=== PATIENT | male | born 1990 | race Caucasian/White ===

== ENCOUNTER 2024-03-29 09:33 | Emergency (ER) | payer OTHER, SELFPAY ==
[2024-03-29 09:34] VITALS: BP 126/78; PULSE 62; RESP 16; TEMP 36.7; O2SAT 100; BMI 24.3
--- NOTE | 2024-03-29 10:10 | EKG12_ITS ---
Test Reason : Blood Pressure : */* mmHG Vent. Rate : 56 BPM Atrial Rate : 56 BPM P-R Int : 136 ms QRS Dur : 88 ms QT Int : 400 ms P-R-T Axes : 73 74 65 degrees QTcB Int : 386 ms Sinus bradycardia Otherwise normal ECG Confirmed by CAN IBANEZ, LAWANDA ([id number]), telegraph editor RAND RUSHING ([id number]) on 03/31/2024 7:24:29 AM Referred By: KISHOR Confirmed By: LAWANDA NORTH MD
--- NOTE | 2024-03-29 10:10 | RAD_ITS ---
EXAM: XR Chest, 1 View CLINICAL INDICATION: TECHNIQUE: Frontal view of the chest. COMPARISON: No relevant prior studies available. FINDINGS: LUNGS AND PLEURAL SPACES: Unremarkable. No consolidation. No pneumothorax. HEART: Unremarkable. No cardiomegaly. MEDIASTINUM: Unremarkable. Normal mediastinal contour. BONES/JOINTS: Unremarkable. No acute fracture. RAD/Chest 1 View (Portable) IMPRESSION: No acute cardiopulmonary process. Reading [facility]
--- NOTE | 2024-03-29 10:25 | EX.ED.DYSGE1 ---
HPI History of Present Illness Chief Complaint: Fall Informant: patient Narrative Narrative: 33-year-old male presenting to the emergency room with syncope. Patient states this morning he was on his way into work when he fell down the stairs due to the ice. He did not feel injured at the time and went to work and was doing his job. He bumped his left knee and states it hit my funny bone. He states he sat down and the next thing he remembers she was waking up on the ground seeing White. He does not believe that he does not believe that he was on the ground for long. A coworker was with him. He was not sweaty. He noted ringing in the right ear. He got up and began feeling nauseous throbbing headache hot and sweaty. Eventually he sat down in the office and began feeling better. He went to urgent care and was sent here. He has not had prior syncope before. Other than his headache which she describes as throbbing and frontal and some mild nausea he is feeling better. [facility] Medical History (Updated 03/29/24 @ 11:[address] Rocky Johns DO) Depression Allergy/AdvReac Type Severity Reaction Status Date / Time No Known Allergies Allergy Verified 03/29/24 09:34 Social History Smoking Status: Unknown if ever smoked ROS ROS ED ROS Narrative Hot and sweaty feeling Constitutional Constitutional ED: Denies chills or weight loss Eyes Eyes: Denies change in vision or diplopia ENT ENT ED: Reports other Details: Right ear tinnitus resolved ; Denies ear pain, rhinorrhea or sore throat Cardiovascular Cardiovascular: Denies chest pain, orthopnea, palpitations or racing heartbeat Respiratory/Chest Respiratory/Chest: Denies cough, dyspnea or orthopnea Gastrointestinal Gastrointestinal: Reports nausea; Denies abdominal pain, diarrhea or vomiting Genitourinary Genitourinary ED: Denies dysuria, hematuria or urinary frequency Musculoskeletal Musculoskeletal: Denies arthralgias or myalgias Integumentary Denies abscess or rash Neurologic Neurologic: Reports headache(s); Denies weakness Psychiatric Psychiatric: Denies anxiety, depression, suicidal ideation or suicidal thoughts Endocrine Endocrinology: Denies polydipsia, polyphagia or polyuria Allergic/Immunologic Allergic/Immunologic ED: Denies mouth swelling, tongue swelling or urticaria EXAM Physical Exam Const Vital Signs: 03/29/24 09:34 03/29/24 09:47 Temperature 98.0 F Temperature Source Temporal Pulse Rate 62 Respiratory Rate 16 Blood Pressure 126/78 H Blood Pressure Mean 94 Pulse Ox 100 Oxygen Delivery Method Room Air Room Air Positive well nourished and well developed General Appearance ED: well developed HEENT Reports normocephalic, head/scalp atraumatic and moist mucous membranes Eyes PERRL and EOMs intact bilaterally Neck no lymphadenopathy, supple and no JVD Resp normal respiratory effort and clear to auscultation bilaterally Cardio regular rate, regular rhythm and no murmurs GI normal to inspection, nondistended, normoactive bowel sounds and non-tender Palpation: soft Back/Spine no CVA tenderness and normal ROM Extremity normal to inspection General Extremety ED: Negative for edema General Extremity: Negative for edema Neuro oriented x3 and CN's II-XII intact bilaterally Sensorium / Orientation: alert Motor Exam: strength 5/5 throughout Psych mental status grossly normal Mood & Affect: Negative for depressed or tearful Skin no rashes or lesions noted and no wounds MDM MDM MDM Narrative Medical decision making narrative: Differential diagnosis includes but not limited to vasovagal syncope cardiogenic syncope anemia dehydration electrolyte abnormality. Patient is EKG is a sinus bradycardia. He is had no events on the monitor. White count 6.4 hemoglobin 13.8 platelet count of 213. Sodium potassium within normal limits. Glucose of 102. My independent interpretation of the chest x-ray is no acute process. Patient received Tylenol for the headache. A CT of the head was obtained which demonstrates no intracranial hemorrhage hematoma or mass. Patient was observed here in department. He notes that when he leaned forward for his chest x-ray he felt lightheaded but did not lose consciousness. There were no events on the monitor during that time. I do not have a clear explanation for his syncope. Could be vasovagal from the pain of hitting his knee. However his knee is not hurting him at this time. We talked about various causes of syncope. We talked about returning should he pass out again. Patient notes understanding has plans to follow-up with his doctor. History & Record Review Discussion w/independent historian: Patient Lab Data Attestation: I reviewed the patient's lab results. Labs: Laboratory Results - last 24 hr 03/29/24 10:35 WBC 6.4 RBC 4.74 Hgb 13.8 Hct 41.4 MCV 87.3 MCH 29.1 MCHC 33.3 RDW Std Deviation 41.0 RDW Coeff of Logan 12.8 Plt Count 213 MPV 9.8 Immature Gran % (Auto) 0.200 Neut % (Auto) 78.3 H Lymph % (Auto) 13.0 L [place] % (Auto) 7.7 Eos % (Auto) 0.5 Baso % (Auto) 0.3 Absolute Neuts (auto) 5.0 Absolute Lymphs (auto) 0.83 Nucleated RBC % 0 Sodium 140 Potassium 4.1 Chloride 106 Carbon Dioxide 29.0 Anion Gap 5 BUN 13 Creatinine 1.06 Estim Creat Clear Calc 103.30 Est GFR (MDRD) Af Amer 104 Est GFR (MDRD) Non-Af 86 BUN/Creatinine Ratio 12.3 Glucose 102 Calcium 8.9 Total Bilirubin 0.60 Direct Bilirubin 0.17 AST 11 L ALT 23 Alkaline Phosphatase 98 Total Protein 7.4 Albumin 4.1 Globulin 3.3 Radiography Diagnostic Testing: Clinical Impression(s) from Imaging Studies Chest X-Ray 03/29/24 10:10 IMPRESSION: No acute cardiopulmonary process. Reading Location: [facility] Brain CT 03/29/24 11:00 IMPRESSION: No acute intracranial hemorrhage, midline shift or mass effect. If symptoms persist, further evaluation with MRI is recommended. Reading Location: [facility] EKG Initial EKG: Attestation: I personally reviewed and interpreted this EKG as follows: Comments: Sinus bradycardia ventricular rate of 56 bpm Discharge Plan Triage Chief Complaint: Fall ED Provider: Rocky Johns Dx/Rx/DC Orders Clinical Impression: Syncope and collapse, Headache Instructions: What Is Syncope Primary Care Provider: Keiry Kerr NP Referrals: Keiry Kerr ENGINEERING SCIENTIST, ENGINEERING SCIENTIST-C [Primary Care Provider] - 3-5 Days if not improving [facility] Doctor,Out of [Non-Staff] - Print Language: Georgian Disposition Disposition: Home, Self Care
[2024-03-29 10:49] LABS: Absolute Lymphocyte Count 0.83 X10^3/uL (0.83-4.51); Basophil# 0.02 X10^3/uL; Basophil% 0.3 % (0-1); Eosinophil# 0.03 X10^3/uL; Eosinophils% 0.5 % (0-5); Hematocrit 41.4 % (40-54); Hemoglobin 13.8 g/dL (13.0-16.5); Lymphocyte # 0.83 X10^3/ul (0.83-4.51); Mean Corp Hgb Conc 33.3 g/dL (32-36); Mean Corpuscular Hgb 29.1 pg (27.0-32.0); Mean Corpuscular Volume 87.3 fL (80-94); Mean Platelet Vol. 9.8 fl (6.2-12.0); Monocyte# 0.49 X10^3/uL; Monocyte% 7.7 % (0-10); NRBC Flagged by Analyzer 0 % (0-5); Neutrophil # 5.02 X10^3/uL (2.7-7.7); Neutrophil % 78.3 % (47-70); Platelet Count 213 K/mm3 (150-450); RBC Distribution Width CV 12.8 % (11.6-14.6); Red Blood Count 4.74 M/mm3 (4.6-6.2); White Blood Count 6.4 K/mm3 (4.4-11.0)
[2024-03-29] MEDS: Acetaminophen 500 MG Tablet 1000 MG PO (10:49)
[2024-03-29] MEDS: Ondansetron 4 MG/2 ML Vial IV (10:49)
--- NOTE | 2024-03-29 11:00 | CT_ITS ---
EXAM: CT Head Without Intravenous Contrast CLINICAL INDICATION: TECHNIQUE: Axial computed tomography images of the head/brain without intravenous contrast. This CT exam was performed using one or more of the following dose reduction techniques: automated exposure control, adjustment of the mA and/or kV according to patient size, and/or use of iterative reconstruction technique. COMPARISON: No relevant prior studies available. FINDINGS: BRAIN AND EXTRA-AXIAL SPACES: No acute intracranial hemorrhage, midline shift or mass effect. If symptoms persist, further evaluation with MRI is recommended. No significant white matter disease. BONES/JOINTS: Unremarkable. No acute fracture. SOFT TISSUES: Unremarkable. SINUSES: Unremarkable as visualized. No acute sinusitis. MASTOID AIR CELLS: Unremarkable as visualized. No mastoid effusion. CT/Brain/Head without Contrast IMPRESSION: No acute intracranial hemorrhage, midline shift or mass effect. If symptoms per sist, further evaluation with MRI is recommended. Reading Location[facility]
[2024-03-29 11:06] LABS: AST(SGOT) 11 U/L (15-37); Alanine Aminotransfer ALT/SGPT 23 U/L (16-61); Albumin, Serum 4.1 g/dL (3.2-5.0); Alkaline Phosphatase 98 U/L (45-117); Anion Gap 5 (5-15); BUN 13 mg/dL (7-18); BUN/Creat Ratio 12.3 RATIO (10-20); Bilirubin, Direct 0.17 mg/dL (0.00-0.30); Calcium,Total 8.9 mg/dL (8.5-10.1); Chloride 106 mmol/L (98-107); Creatinine, Serum 1.06 mg/dL (0.70-1.30); EST Glomerular Filtration Rate 86 mL/min (>60); Est Glom Filt Rate - Afr Amer 104 mL/min (>60); Globulin 3.3 g/dL (2.2-4.2); Glucose 102 mg/dL (74-106); Potassium 4.1 mmol/L (3.5-5.1); Protein, Total 7.4 g/dL (6.4-8.2); Sodium Level 140 mmol/L (136-145)
== END 2024-03-29 12:27 | disposition home or self-care (01) ==
PROVIDERS: Emergency Provider Emergency Medicine; PCP Nurse Practitioner Family; Visit Provider Emergency Medicine
DX: R55 Syncope and collapse (principal); R51.9 Headache, unspecified; W00.1XXA Fall from stairs and steps due to ice and snow, initial encounter
CPT/HCPCS: 70450; 71045; 80048; 80076; 85025; 93005; 96374; 99284; A4216; J2405